=== PATIENT | female | born 1945 | race Caucasian/White ===

== ENCOUNTER 2021-07-17 13:47 | Emergency (ER) | payer MEDICARE, OTHER ==
[2021-07-17] MEDS ORDERED: Sodium Chloride 0.9% 10 ML Syringe FLUSH PRN (14:04)
--- NOTE | 2021-07-17 14:07 | EDM.PDOC ---
ED HPI GENERAL MEDICAL PROBLEM - General Stated Complaint: [id number] CHEST PAIN Time Seen by Provider: 07/17/21 14:06 Source of Information: Reports: Patient History Limitations: Reports: No Limitations - History of Present Illness INITIAL COMMENTS - FREE TEXT/NARRATIVE: 76 y/o F states she awoke with CP center chest radiating into her L arm and into her wrist. Pt states throughout the morning the pain became worse 9/10 while she was driving. Is a heavy smoker. No heart hx. Hx of HTN anxiety. No reported NV, db, abd pn, neck pn, vision prob, pelvic pn, diff voiding. Onset: Today, Sudden Duration: Day(s): Location: Reports: Chest Sternum Pain Score (Numeric/FACES): 3 - Related Data Allergies Allergy/AdvReac Type Severity Reaction Status Date / Time No Known Allergies Allergy Verified 07/17/21 14:56 Home Meds: Home Meds Spironolactone 50 mg PO DAILY 07/17/21 [History] hydroCHLOROthiazide [Hydrochlorothiazide] 12.5 mg PO DAILY 07/17/21 [History] ED ROS GENERAL - Review of Systems Review Of Systems: Comprehensive ROS is negative, except as noted in HPI. ED EXAM, GENERAL - Physical Exam Exam: See Below Exam Limited By: No Limitations General Appearance: Alert, No Apparent Distress Eye Exam: Bilateral Eye: PERRL Nose: Normal Inspection, Normal Mucosa, No Blood Throat/Mouth: Normal Inspection, Normal Lips, Normal Teeth, Normal Gums, Normal Oropharynx, Normal Voice, No Airway Compromise Head: Atraumatic, Normocephalic Neck: Normal Inspection, Supple, Non-Tender, Full Range of Motion Respiratory/Chest: No Respiratory Distress, Lungs Clear, Normal Breath Sounds, No Accessory Muscle Use, Chest Non-Tender Cardiovascular: Normal Peripheral Pulses, Regular Rate, Rhythm, No Edema, No Gallop, No JVD, No Murmur, No Rub GI/Abdominal: Soft, Non-Tender (Female) Exam: Deferred Rectal (Female) Exam: Deferred Back Exam: Normal Inspection, Full Range of Motion, NT Extremities: Normal Inspection, Normal Range of Motion, Non-Tender, Normal Capillary Refill, No Pedal Edema Neurological: Alert, Oriented, CN II-XII Intact, Normal Cognition, Normal Gait, Normal Reflexes, No Motor/Sensory Deficits Psychiatric: Normal Affect, Normal Mood Skin Exam: Warm, Dry, Intact #1 Interpretation EKG Date: 07/17/21 Time: 14:02 Rhythm: NSR [place]: Normal P-Wave: Present QRS: Normal ST-T: Normal QT: Normal Course - Vital Signs Last Recorded V/S: Last Vital Signs Temp 98 F 07/17/21 13:50 Pulse 71 07/17/21 13:50 Resp 16 07/17/21 13:50 BP 168/80 H 07/17/21 13:50 Pulse Ox 99 07/17/21 13:50 - Orders/Labs/Meds Orders: Active Orders 24 hr Category Date Time Status Peripheral IV Care [RC] . DIRECTED Care 07/17/21 14:05 Active UA RFX DANIEL AND CULT IF INDIC [URIN] Stat Lab 07/17/21 14:04 Ordered Sodium Chloride 0.9% [Saline Flush] Med 07/17/21 14:04 Active 10 ml FLUSH ASDIRECTED PRN Peripheral IV Insertion Adult [OM.PC] Routine Oth 07/17/21 14:04 Ordered Medication Orders Sodium Chloride (Sodium Chloride 0.9% 10 Ml Syringe) 10 ml FLUSH ASDIRECTED PRN PRN Reason: Keep Vein Open Last Admin: 07/17/21 14:34 Dose: 10 ml Documented by: BRYAN Labs: Laboratory Tests 07/17/21 07/17/21 07/17/21 Range/Units 14:06 14:06 14:06 WBC 8.4 (5.0-10.0) 10^3/uL RBC 4.30 (4.2-5.4) 10^6/uL Hgb 13.7 (12.0-16.0) g/dL Hct 39.1 (37.0-47.0) % MCV 90.9 (80-100) fL MCH 31.9 (27.0-34.0) pg MCHC 35.0 (33.0-35.0) g/dL Plt Count 347 (150-450) 10^3/uL Neut % (Auto) 64.4 (42.2-75.2) % Lymph % (Auto) 27.4 (20.5-50.1) % [place] % (Auto) 5.7 (2-8) % Eos % (Auto) 2.1 (1.0-3.0) % Baso % (Auto) 0.4 (0.0-1.0) % Sodium 128 L (136-145) mmol/L Potassium 4.5 (3.5-5.1) mmol/L Chloride 92 L (98-107) mmol/L Carbon Dioxide 26 (21-32) mmol/L Anion Gap 14.5 H (7-13) mEq/L BUN 17 (7-18) mg/dL Creatinine 0.91 (0.55-1.02) mg/dL Est Cr Clr Drug Dosing TNP Estimated GFR (MDRD) 60 BUN/Creatinine Ratio 18.7 (No establ ref range) Glucose 130 H (70-99) mg/dL Lactic Acid 1.4 (0.4-2.0) mmol/L Calcium 9.3 (8.5-10.1) mg/dL Magnesium 1.8 (1.8-2.4) mg/dL Total Bilirubin 0.2 (0.2-1.0) mg/dL AST 15 (15-37) U/L ALT 22 (14-59) U/L Alkaline Phosphatase 72 (46-116) U/L Troponin I High Sens 7 (<=51) pg/mL C-Reactive Protein < 0.2 (0.0-0.9) mg/dL B-Natriuretic Peptide 26 (0-100) pg/ml Total Protein 7.5 (6.4-8.2) g/dL Albumin 4.0 (3.4-5.0) g/dL Globulin 3.5 Albumin/Globulin Ratio 1.1 Amylase 83 (25-115) U/L Lipase 111 (73-393) U/L TSH, Ultra Sensitive 3.77 H (0.36-3.74) uIU/mL Meds: Medications Generic Name Dose Route Start Last Admin Trade Name Freq PRN Reason Stop Dose Admin Sodium Chloride 10 ml 07/17/21 14:04 07/17/21 14:34 Sodium Chloride 0.9% 10 Ml Syringe FLUSH 10 ml ASDIRECTED PRN Administration Keep Vein Open - Re-Assessments/Exams Free Text/Narrative Re-Assessment/Exam: 07/17/21 15:38 Negative work up. I suspect after talkig to the pt again that her symptoms were brought on by anxiety over her move from [place] and [employer] problems> I will have her follow up with her primary care doctor. 07/17/21 15:47 Departure - Departure Time of Disposition: 15:47 Disposition: Home, Self-Care 01 Condition: Good Clinical Impression: Anxiety Instructions: Nonspecific Chest Pain, Adult, [id number] Additional Instructions: Follow up with your primary car facility about the symptoms you had today. If any new symptoms or concerns develop contact your primary care facility or return to the ER. Sepsis Event Note (ED) - Focused Exam Vital Signs: Vital Signs Temp Pulse Resp BP Pulse Ox 07/17/21 13:50 98 F 71 16 168/80 H 99 - My Orders Last 24 Hours: My Active Orders 07/17/21 14:04 UA RFX DANIEL AND CULT IF INDIC [URIN] Stat Sodium Chloride 0.9% [Saline Flush] 10 ml FLUSH ASDIRECTED PRN Peripheral IV Insertion Adult [OM.PC] Routine 07/17/21 14:05 Peripheral IV Care [RC] . DIRECTED - Assessment/Plan Last 24 Hours: My Active Orders 07/17/21 14:04 UA RFX DANIEL AND CULT IF INDIC [URIN] Stat Sodium Chloride 0.9% [Saline Flush] 10 ml FLUSH ASDIRECTED PRN Peripheral IV Insertion Adult [OM.PC] Routine 07/17/21 14:05 Peripheral IV Care [RC] . DIRECTED
[2021-07-17 14:43] LABS: ANION GAP 14.5 mEq/L (7-13); CHLORIDE,CL 92 mmol/L (98-107); SODIUM,NA 128 mmol/L (136-145)
--- NOTE | 2021-07-17 15:10 | CR ---
EXAMINATION: Chest 1V Frontal SEX: Female AGE: 76 years CLINICAL HISTORY: 76-year-old female experiencing chest pain. No comparison CXR immediately available. Interpretation: Small platelike atelectasis RUL. Mild scoliosis and chronic arthritic changes of the spine. Normal cardiac silhouette (size and configuration). External threat monitoring analyst leads. No pulmonary vascular congestion, cephalization of flow, alveolar edema or dependent pleural fluid accumulation. Curvilinear atheromatous calcifications arch of the aorta. Ascending aorta unremarkable. No alveolar consolidation, atelectasis/collapse, or bronchograms, or peripheral "groundglass" interstitial lung densities. No lung mass or hilar lymphadenopathy. No pneumothorax or pneumomediastinum. No air trapping or free subdiaphragmatic air. CONCLUSION: No signs of heart failure, lung mass or lobar pneumonia.
== END 2021-07-17 16:01 | disposition home or self-care (01) ==
LOC: DL.ED 13:47
DX: F41.9 Anxiety disorder, unspecified (principal); I10 Essential (primary) hypertension; F17.200 Nicotine dependence, unspecified, uncomplicated; Z79.899 Other long term (current) drug therapy
CPT/HCPCS: 36415; 71045; 80053; 82150; 83605; 83690; 83735; 83880; 84443; 84484; 85025; 86140; 93005; 99285-25